=== PATIENT | female | born 1990 | race American Indian/Alaskan Native ===

== ENCOUNTER 2017-05-18 08:30 | Emergency (ER) | payer SELFPAY ==
[2017-05-18 08:41] VITALS: BP 106/71
[2017-05-18 09:47] LABS: Basophils % (Auto) 1.1 % (0.0-1.8); Eosinophils % (Auto) 2.1 % (0.0-4.3); Hematocrit 40.4 % (30.3-42.9); Hemoglobin 13.6 gm/dl (10.1-14.3); Mean Corpuscular HGB Conc 34 % (30-34); Mean Corpuscular Hemoglobin 31 pg (28-32); Mean Corpuscular Volume 92 fl (79-97); Platelet Count 341 K/mm3 (140-440); Red Blood Count 4.38 M/mm3 (3.65-5.03); Red Cell Distribution Width 12.9 % (13.2-15.2)
[2017-05-18 09:51] LABS: Alanine Aminotransferase 13 units/L (7-56); Albumin 4.6 g/dL (3.9-5); Albumin/Globulin Ratio 1.5 %; Alkaline Phosphatase 100 units/L (35-129); Anion Gap 19 mmol/L; BUN/Creatinine Ratio 18.33; Blood Urea Nitrogen 11 mg/dL (7-17); Calcium 9.3 mg/dL (8.4-10.2); Carbon Dioxide 25 mmol/L (22-30); Chloride 98.5 mmol/L (98-107); Glucose 93 mg/dL (65-100); Potassium 3.7 mmol/L (3.6-5.0); Sodium 139 mmol/L (137-145); Total Protein 7.7 g/dL (6.3-8.2)
== END 2017-05-18 14:58 | disposition left against medical advice (07) ==
LOC: ED 08:30
DX: R07.9 Chest pain, unspecified (principal); Z53.21 Procedure and treatment not carried out due to patient leaving prior to being seen by health care provider
CPT/HCPCS: 36415; 80048; 80053; 84484; 85025; 93005; 93010

== ENCOUNTER 2018-09-07 08:07 | Emergency (ER) | payer MEDICAID, OTHER ==
--- NOTE | 2018-09-07 09:30 | Emergency Department Report ---
HPI - General Chief Complaint: Extremity Injury, Lower Time Seen by Provider: 09/07/18 08:52 - HPI HPI: This is a 28-year-old female presents to ED complaining of left knee swelling that has been intermittent for the past 2 years after having a . Patient states that intermittently she gets swelling on her knees. Patient states yesterday she had swelling to the left knees and after she put some heat to it the swelling went down. Patient states that she has not had any injuries or trauma to the knee. She denies difficulty walking, fever, fall, redness or lesions. ED Past Medical Hx - Past Medical History Hx Hypertension: No Hx Congestive Heart Failure: No Hx Diabetes: No Hx Deep Vein Thrombosis: No Hx GERD: Yes Hx Renal Disease: No Hx Sickle Cell Disease: No Hx Seizures: No Hx Asthma: No Hx COPD: No Hx HIV: No - Surgical History Additional Surgical History: c section x 2 - Social History Smoking Status: Never Smoker Substance Use Type: None - Medications Home Medications: Home Medications Medication Instructions Recorded Confirmed Last Taken Type Diphenoxylate/Atropine [Lomotil] 1 tab PO Q4H PRN #10 tablet 07/09/13 03/08/16 Unknown Rx Naproxen [Naprosyn TAB] 375 mg PO BID #30 tablet 05/26/14 03/08/16 Unknown Rx HYDROcodone/APAP 5-325 [[place] 1 each PO Q6HR PRN #20 tablet 08/27/14 03/08/16 Unknown Rx 5-325 mg TAB] Ondansetron [Zofran Odt] 4 mg PO Q6H #10 tab.rapdis 09/03/14 03/08/16 Unknown Rx Sulfamethoxazole/Trimethoprim 1 each PO BID #6 tablet 09/03/14 03/08/16 Unknown Rx [Bactrim Ds] Doxycycline Monohydrate 100 mg PO BID #20 tablet 09/30/14 03/08/16 Unknown Rx Famotidine [Pepcid] 20 mg PO BID #30 tablet 09/30/14 03/08/16 Unknown Rx Hyoscyamine Subl [Levsin Sl 0.125 0.125 mg PO Q4-6H PRN #15 tablet 09/30/14 03/08/16 Unknown Rx TAB] Omeprazole [PriLOSEC] 20 mg PO QDAY #30 capsule. 11/15/14 03/08/16 Unknown Rx Promethazine [Phenergan TAB] 25 mg PO Q6H PRN #15 tablet 11/15/14 03/08/16 Unknown Rx Docusate Sodium [Colace] 100 mg PO BID PRN #60 capsule 03/07/16 Unknown Rx Oxycodone HCl/Acetaminophen 1 each PO Q6HR PRN #45 tablet 03/07/16 Unknown Rx [Percocet 7.5/325 mg] Ondansetron [Zofran Odt] 4 mg PO Q8HR PRN #14 tab.rapdis 07/23/18 Unknown Rx Promethazine [Phenergan] 25 mg [place] Q6HR PRN #20 supp.rect 07/23/18 Unknown Rx Cyclobenzaprine [Flexeril 10 MG 10 mg PO Q8H PRN #21 tablet 09/07/18 Unknown Rx TAB] Ibuprofen [Motrin 800 MG tab] 800 mg PO Q8HR PRN #60 tablet 09/07/18 Unknown Rx ED Review of Systems ROS: Stated complaint: FLUID IN (L) KNEE/LOST BALANCE Other details as noted in HPI Constitutional: denies: chills, fever Eyes: denies: eye pain, eye discharge, vision change ENT: denies: ear pain, throat pain Respiratory: denies: cough, shortness of breath, wheezing Cardiovascular: denies: chest pain, palpitations Endocrine: no symptoms reported Gastrointestinal: denies: abdominal pain, nausea, diarrhea Genitourinary: denies: urgency, dysuria, discharge Musculoskeletal: denies: back pain, joint swelling, arthralgia Skin: denies: rash, lesions Neurological: denies: headache, weakness, paresthesias Psychiatric: denies: anxiety, depression Hematological/Lymphatic: denies: easy bleeding, easy bruising Physical Exam - Physical Exam Vital Signs: Vital Signs 09/07/18 08:12 Temperature 97.9 F Pulse Rate 63 Respiratory 18 Rate Blood Pressure 123/66 O2 Sat by Pulse 99 Oximetry Physical Exam: GENERAL: Alert and oriented x3, no apparent distress, Normal Gait, atraumatic. HEAD: Head is normocephalic and a-traumatic. NECK: Supple. Non edematous, No lymphadenopathy or thyromegaly. No C-spine tenderness, full range of motion LUNGS: Symetrical with respiration, No wheezing, no rales or crackles, CTAB. HEART: S1, S2 present, regular rate and rhythm without murmur, no rubs, no gallops. Non tender to palpation BACK: Full range of motion, no spinal tenderness, Tenderness to palpation of the trapezius muscles and latissimus dorsi muscles of the back EXTREMITIES/MUSCULOSKELETAL: No cyanosis, clubbing, rash, lesions or edema. Full ROM bilaterally. UE/LE Pulses 2+ bilaterally. LE and UE 5+ strength bilaterally, NEUROLOGIC: The patient is cooperative with no focal neurologic deficits. SKIN: Warm and dry, No lesions, No ulceration or induration present. ED Course Vital Signs 09/07/18 08:12 Temperature 97.9 F Pulse Rate 63 Respiratory 18 Rate Blood Pressure 123/66 O2 Sat by Pulse 99 Oximetry ED Medical Decision Making - Medical Decision Making 28-year-old female presents with knee joint pain/inflammation Plan evaluation vision and no swelling or person effusion to the knee. Discussed follow-up with orthopedic doctor with the patient. Critical care attestation.: If time is entered above; I have spent that time in minutes in the direct care of this critically ill patient, excluding procedure time. ED Disposition Clinical Impression: Knee pain, left Disposition: DC-01 TO HOME OR SELFCARE Is pt being admited?: No Does the pt Need Aspirin: No Condition: Stable Instructions: Knee Effusion (ED), Arthralgia (ED) Additional Instructions: Make sure to follow up with the primary care physician as discussed. Take all your medications as you've been prescribed. If you have any worsening symptoms or develop new symptoms please return to ED immediately. Prescriptions: Cyclobenzaprine [Flexeril 10 MG TAB] 10 mg PO Q8H PRN #21 tablet PRN Reason: Muscle Spasm Ibuprofen [Motrin 800 MG tab] 800 mg PO Q8HR PRN #60 tablet PRN Reason: Pain Referrals: PRIMARY CAREMD [Primary Care Provider] - 3-5 Days RENETTA GARCIA MD [Staff Physician] - 3-5 Days Forms: Work/School Release Form(ED) Time of Disposition: 09:32
== END 2018-09-07 09:44 | disposition home or self-care (01) ==
LOC: ED 08:07
CPT/HCPCS: 99282

== ENCOUNTER 2022-02-13 09:21 | Emergency (ER) | payer MEDICAID, OTHER ==
[2022-02-13 10:08] LABS: Basophils % (Auto) 0.4 % (0.0-1.8); Hematocrit 43.5 % (30.3-42.9); Hemoglobin 14.7 gm/dl (10.1-14.3); Lymphocytes # (Auto) 0.7 K/mm3 (1.2-5.4); Lymphocytes % (Auto) 9.1 % (13.4-35.0); Mean Corpuscular HGB Conc 34 % (30-34); Mean Corpuscular Volume 99 fl (79-97); Monocytes # (Auto) 0.3 K/mm3 (0.0-0.8); Monocytes % (Auto) 4.1 % (0.0-7.3); Platelet Count 350 K/mm3 (140-440); Red Blood Count 4.37 M/mm3 (3.65-5.03)
[2022-02-13 10:36] LABS: Alanine Aminotransferase 94 units/L (7-56); Albumin 5.5 g/dL (3.9-5); BUN/Creatinine Ratio 12; Blood Urea Nitrogen 6 mg/dL (7-17); Calcium 9.8 mg/dL (8.4-10.2); Hemolysis Index 3
[2022-02-13 13:29] LABS: Bilirubin,Urine NEG (Negative); Blood,Urine SM (Negative); Color,Urine Yellow (Yellow); Urobilinogen,Urine < 2.0 mg/dL (<2.0)
[2022-02-13 13:33] LABS: Bacteria,Urine 1+ /HPF (Negative); Mucus,Urine 3+ /HPF
[2022-02-13 13:34] LABS: Protein,Urine >500 mg/dL (Negative)
[2022-02-13 13:36] LABS: HCG Qualitative,Urine Negative (Negative)
[2022-02-13] MEDS ORDERED: ONDANSETRON 4 MG/2 ML INJ IV ONE (15:14)
[2022-02-13] MEDS ORDERED: DICYCLOMINE 20 MG/2 ML INJ IM ONE (15:14)
[2022-02-13] MEDS ORDERED: SODIUM CHLORIDE 0.9% 1000 ML 1,000 ML IV ONE (15:14)
[2022-02-13] MEDS ORDERED: FAMOTIDINE 20 MG/2 ML INJ IV ONE (15:14)
--- NOTE | 2022-02-13 16:38 | Emergency Department Report ---
<JONIDENISSEGERONIMO Chahal - Last Filed: 02/14/22 07:24> ED Abdominal Pain HPI - General Chief Complaint: Abdominal Pain Stated Complaint: ABD PAIN Time Seen by Provider: 02/13/22 15:07 Source: patient, EMS Mode of arrival: Stretcher Limitations: No Limitations - History of Present Illness Initial Comments: 31-year-old black female with no past medical history presents to the emergency department for evaluation of nausea, vomiting, and abdominal pain and cramping. She states that several hours before her symptoms began, she ate red meat for the first time in years. She states that pain is a crampy type pain in the epigastric area that is intermittent and 10 out of 10 at its worst. She denies fever, dysuria, and vaginal discharge. MD Complaint: abdominal pain -: Sudden, hour(s) Location: epigastric Radiation: none Migration to: no migration Severity scale (0 -10): 10 Quality: cramping Consistency: intermittent Context: possible food poisoning Associated Symptoms: nausea, vomiting. denies: diarrhea, fever, chills, dysuria, hematemesis, hematochezia, melena, hematuria, anorexia, syncope - Related Data LMP (females 10-50): last week Previous Rx's Medication Instructions Recorded Last Taken Type Diphenoxylate/Atropine [Lomotil] 1 tab PO Q4H PRN #10 tablet 07/09/13 Unknown Rx Naproxen [Naprosyn TAB] 375 mg PO BID #30 tablet 05/26/14 Unknown Rx HYDROcodone/APAP 5-325 [[place] 1 each PO Q6HR PRN #20 tablet 08/27/14 Unknown Rx 5-325 mg TAB] Ondansetron [Zofran Odt] 4 mg PO Q6H #10 tab.rapdis 09/03/14 Unknown Rx Sulfamethoxazole/Trimethoprim 1 each PO BID #6 tablet 09/03/14 Unknown Rx [Bactrim Ds] Doxycycline Monohydrate 100 mg PO BID #20 tablet 09/30/14 Unknown Rx Famotidine [Pepcid] 20 mg PO BID #30 tablet 09/30/14 Unknown Rx Hyoscyamine Subl [Levsin Sl 0.125 0.125 mg PO Q4-6H PRN #15 tablet 09/30/14 Unknown Rx TAB] Omeprazole [PriLOSEC] 20 mg PO QDAY #30 capsule. 11/15/14 Unknown Rx Promethazine [Phenergan] 25 mg PO Q6H PRN #15 tablet 11/15/14 Unknown Rx Docusate Sodium [Colace] 100 mg PO BID PRN #60 capsule 03/07/16 Unknown Rx Oxycodone HCl/Acetaminophen 1 each PO Q6HR PRN #45 tablet 03/07/16 Unknown Rx [Percocet 7.5/325 mg] Ondansetron [Zofran Odt] 4 mg PO Q8HR PRN #14 tab.rapdis 07/23/18 Unknown Rx Promethazine [Phenergan] 25 mg [place] Q6HR PRN #20 supp.rect 07/23/18 Unknown Rx Cyclobenzaprine [Flexeril 10 MG 10 mg PO Q8H PRN #21 tablet 09/07/18 Unknown Rx TAB] Ibuprofen [Motrin 800 MG tab] 800 mg PO Q8HR PRN #60 tablet 09/07/18 Unknown Rx Dicyclomine [Bentyl] 20 mg PO QID PRN #30 tablet 02/13/22 Unknown Rx Ondansetron [Zofran Odt] 4 mg PO Q8HR PRN #12 tab.rapdis 02/13/22 Unknown Rx Allergies Allergy/AdvReac Type Severity Reaction Status Date / Time No Known Allergies Allergy Verified 02/13/22 09:24 ED Review of Systems Comment: All other systems reviewed and negative Constitutional: denies: chills, fever Eyes: denies: vision change ENT: denies: congestion Respiratory: denies: shortness of breath Cardiovascular: denies: chest pain, palpitations, dyspnea on exertion Gastrointestinal: abdominal pain, nausea, vomiting. denies: diarrhea, hematemesis, melena, hematochezia Genitourinary: denies: urgency, dysuria, frequency, hematuria, discharge Musculoskeletal: denies: back pain Skin: denies: rash, lesions Neurological: denies: headache, weakness Hematological/Lymphatic: denies: easy bleeding, easy bruising ED Past Medical Hx - Past Medical History Hx Hypertension: No Hx Congestive Heart Failure: No Hx Diabetes: No Hx Deep Vein Thrombosis: No Hx GERD: Yes Hx Renal Disease: No Hx Sickle Cell Disease: No Hx Seizures: No Hx Asthma: No Hx COPD: No Hx HIV: No - Surgical History Additional Surgical History: c section x 2 - Social History Smoking Status: Never Smoker Substance Use Type: None - Medications Home Medications: Home Medications Medication Instructions Recorded Confirmed Last Taken Type Diphenoxylate/Atropine [Lomotil] 1 tab PO Q4H PRN #10 tablet 07/09/13 03/08/16 Unknown Rx Naproxen [Naprosyn TAB] 375 mg PO BID #30 tablet 05/26/14 03/08/16 Unknown Rx HYDROcodone/APAP 5-325 [[place] 1 each PO Q6HR PRN #20 tablet 08/27/14 03/08/16 Unknown Rx 5-325 mg TAB] Ondansetron [Zofran Odt] 4 mg PO Q6H #10 tab.rapdis 09/03/14 03/08/16 Unknown Rx Sulfamethoxazole/Trimethoprim 1 each PO BID #6 tablet 09/03/14 03/08/16 Unknown Rx [Bactrim Ds] Doxycycline Monohydrate 100 mg PO BID #20 tablet 09/30/14 03/08/16 Unknown Rx Famotidine [Pepcid] 20 mg PO BID #30 tablet 09/30/14 03/08/16 Unknown Rx Hyoscyamine Subl [Levsin Sl 0.125 0.125 mg PO Q4-6H PRN #15 tablet 09/30/14 03/08/16 Unknown Rx TAB] Omeprazole [PriLOSEC] 20 mg PO QDAY #30 capsule. 11/15/14 03/08/16 Unknown Rx Promethazine [Phenergan] 25 mg PO Q6H PRN #15 tablet 11/15/14 03/08/16 Unknown Rx Docusate Sodium [Colace] 100 mg PO BID PRN #60 capsule 03/07/16 Unknown Rx Oxycodone HCl/Acetaminophen 1 each PO Q6HR PRN #45 tablet 03/07/16 Unknown Rx [Percocet 7.5/325 mg] Ondansetron [Zofran Odt] 4 mg PO Q8HR PRN #14 tab.rapdis 07/23/18 Unknown Rx Promethazine [Phenergan] 25 mg [place] Q6HR PRN #20 supp.rect 07/23/18 Unknown Rx Cyclobenzaprine [Flexeril 10 MG 10 mg PO Q8H PRN #21 tablet 09/07/18 Unknown Rx TAB] Ibuprofen [Motrin 800 MG tab] 800 mg PO Q8HR PRN #60 tablet 09/07/18 Unknown Rx Dicyclomine [Bentyl] 20 mg PO QID PRN #30 tablet 02/13/22 Unknown Rx Ondansetron [Zofran Odt] 4 mg PO Q8HR PRN #12 tab.rapdis 02/13/22 Unknown Rx ED Physical Exam - General Limitations: No Limitations General appearance: alert, in no apparent distress - Head Head exam: Present: atraumatic, normocephalic - Eye Eye exam: Present: normal appearance. Absent: conjunctival injection, periorbital swelling, periorbital tenderness - Neck Neck exam: Present: normal inspection, full ROM. Absent: tenderness, lymphadenopathy - Respiratory Respiratory exam: Present: normal lung sounds bilaterally. Absent: respiratory distress, wheezes, rales, rhonchi, stridor, chest wall tenderness - Cardiovascular Cardiovascular Exam: Present: regular rate, normal heart sounds - GI/Abdominal GI/Abdominal exam: Present: soft, normal bowel sounds. Absent: distended, tenderness, rebound, rigid - Extremities Exam Extremities exam: Present: normal inspection, normal capillary refill. Absent: pedal edema, joint swelling, calf tenderness - Back Exam Back exam: Present: normal inspection. Absent: CVA tenderness (R), CVA tenderness (L), vertebral tenderness - Neurological Exam Neurological exam: Present: alert, oriented X3, CN II-XII intact, normal gait - Psychiatric Psychiatric exam: Present: normal affect, normal mood - Skin Skin exam: Present: warm, dry, intact, normal color ED Course - Reevaluation(s) Reevaluation #1: 02/13/22 16:38 Nausea vomiting abdominal cramping resolved. Patient states that she feels much better. ED Medical Decision Making - Lab Data Result diagrams: 02/13/22 09:52 02/13/22 09:52 - Medical Decision Making 31-year-old black female with no past medical history presents to the emergency department for evaluation of nausea, vomiting, and abdominal pain and cramping. She states that several hours before her symptoms began, she ate red meat for the first time in years. She states that pain is a crampy type pain in the epigastric area that is intermittent and 10 out of 10 at its worst. She denies fever, dysuria, and vaginal discharge. Physical exam unremarkable. Labs noted to have mild elevation in LFTs, but patient admits to some heavy drinking the last couple of days also. Symptoms were resolved after medications. Patient will be discharged home with Bentyl and Zofran to use as needed for abdominal cramping and nausea and advised to follow-up with her primary care provider or GI doctor for further evaluation and management or return to the emergency department for any concerning symptoms. She verbalizes understanding of and agreement with plan of care. ED Disposition Clinical Impression: Gastroenteritis Disposition: 01 HOME / SELF CARE / HOMELESS Is pt being admited?: No Does the pt Need Aspirin: No Condition: Stable Instructions: Viral Gastroenteritis, Adult, [id number], Abdominal Pain (ED) Additional Instructions: Take medications as prescribed. Increase intake of noncaffeinated fluids. Follow-up with your primary care provider. Return to the emergency department as needed. Prescriptions: Dicyclomine [Bentyl] 20 mg PO QID PRN #30 tablet PRN Reason: Pain, Moderate (4-6) Ondansetron [Zofran Odt] 4 mg PO Q8HR PRN #12 tab.rapdis PRN Reason: Nausea And Vomiting Referrals: BHARGAV KHAN MD [Staff Physician] - 3-5 Days Forms: Work/School Release Form(ED) Time of Disposition: 16:40 <GISELA TREJO - Last Filed: 02/15/22 04:41> ED Review of Systems ROS: Stated complaint: ABD PAIN Other details as noted in HPI ED Course Vital Signs 02/13/22 02/13/22 09:22 16:30 Temperature 98.9 F 98.3 F Pulse Rate 68 56 L Respiratory 16 16 Rate Blood Pressure 172/84 128/86 [Left] O2 Sat by Pulse 100 100 Oximetry ED Medical Decision Making - Lab Data Result diagrams: 02/13/22 09:52 02/13/22 09:52 Critical care attestation.: If time is entered above; I have spent that time in minutes in the direct care of this critically ill patient, excluding procedure time. ED Disposition Is pt being admited?: No Does the pt Need Aspirin: No
[2022-02-13 17:06] VITALS: BP 128/86
== END 2022-02-13 17:06 | disposition home or self-care (01) ==
LOC: ED 09:21
DX: K52.9 Noninfective gastroenteritis and colitis, unspecified (principal); K21.9 Gastro-esophageal reflux disease without esophagitis; Z79.899 Other long term (current) drug therapy
CPT/HCPCS: 36415; 80053; 81001; 81025; 83690; 85025; 96361; 96372; 96374; 96375; 99283; J0500; J2405; J3490; J7030